=== PATIENT | female | born 1975 | race Caucasian/White ===

== ENCOUNTER → 2016-07-27 | Outpatient (CLI) | payer OTHER ==
[~2016-07-27] MED LIST: AMOXICILLIN500 M1 PO; CLARITIN10 M3 PO; ENBREL50 MG/1 M1 SUBQ; FLEXERIL10 MG PO; GABAPENTIN400 MG PO; HYDROCODON-ACE1 EAC7 PO; MOBIC15 MG PO; SYNTHROID75 MCG PO; TOPROL XL50 MG PO; VITAMIN D350000 UNIT PO; WELLBUTRIN XL150 M2 PO; ZESTORETIC 20-1 EAC1 PO
--- NOTE | ~2016-07-27 | EKG ---
PATIENT: REAL REESE UNIT #: [id number] Ventricular Rate: 84 BPM Atrial Rate: 84 BPM P-R Interval: 144 ms QRS Duration: 84 ms Q-T Interval: 370 ms QTC Calculation(Bezet): 437 ms P [place]: 3 degrees Calculated R [place]: -3 degrees Diagnosis Line: Normal sinus rhythm Diagnosis Line: Minimal voltage criteria for LVH, may be normal Diagnosis Line: variant Diagnosis Line: Otherwise normal ECG Diagnosis Line: No previous ECGs available Diagnosis Line: Confirmed by DANIELA MARIE MD ([id number]) on 07/28/2016 Diagnosis Line: 10:04:07 AM INTERPRETING MD: FRANK BANEGAS
[2016-07-27 15:20] LABS: BUN/CREATININE RATIO 12.5; CALCIUM SERUM 9.5 mg/dL (8.4-10.2); CREATININE SERUM 0.8 mg/dL (0.6-1.4); GLOM FILT RATE Estimated 92.3 mL/min (>60)
== END | disposition home or self-care (01) ==
LOC: CAMB 12:52
PROVIDERS: Orthopaedic Surgery
DX: Z01.818 Encounter for other preprocedural examination (principal); M23.42 Loose body in knee, left knee; I10 Essential (primary) hypertension; Z86.2 Personal history of diseases of the blood and blood-forming organs and certain disorders involving the immune mechanism
CPT/HCPCS: 36415; 80048; 93005

== ENCOUNTER → 2016-07-30 | Day surgery (SDC) | payer OTHER ==
--- NOTE | ~2016-07-30 | OR ---
Unit #: [id number] #: [id number] Patient: REAL REESE [id number] [address] [place], [place] [address] [id number] O MR#: [id number] NAME: REAL REESE ROOM: Date of Procedure: 07/30/2016 Admission Date: 07/30/2016 Surgeon: Timi James M.D. : 1975 Attending Physician: Timi Jamse M.D. Primary Care Physician: Trace Ellington Jr., M.D. PROCEDURE OPERATIVE NOTE PREOPERATIVE DIAGNOSIS Left knee loose body. POSTOPERATIVE DIAGNOSES 1. Multiple loose bodies; the largest of which was 2 cm. 2. 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 PROCEDURES PERFORMED 1. Multiple loose bodies removal; the largest of which was 2 cm. 2. Chondroplasty, patellofemoral joint. 3. Chondroplasty, medial tibiofemoral joint. 4. Chondroplasty, lateral tibiofemoral joint. ANESTHESIA General. DESCRIPTION OF PROCEDURE After obtaining informed consent, she was taken to the operating room and placed in a supine position. After adequate induction of general anesthesia, she was prepped and draped in a sterile fashion. Standard anteromedial and anterolateral portals were made. The arthroscope was introduced into the knee. The suprapatellar pouch had a spur, which was removed using a sheila. This was on the lateral side. There was also a 1.5-cm loose body, which was removed through a superolateral portal with a grasper. The base was debrided using a sheila. The patellofemoral joint showed mild grade 3 changes on the patella; more significant grade 3 changes on the trochlear groove. These were debrided using a shaver to smooth the cartilage. Medial and lateral gutters were free of loose body. The medial joint was examined. There were 2 large loose bodies anteriorly; the largest was 2 cm. A little larger portal was made medially to remove these with a grasper. The medial joint was examined. The meniscus was intact, but there was significant grade 3 wear over most of the medial femoral condyle and medial tibial plateau. The notch was examined. The ACL was intact. The lateral joint was examined. There were grade 3 changes over most of the weightbearing surface of the femoral condyle and tibial plateau. The meniscus was intact. A chondroplasty was performed. The portals were closed with 4-0 Vicryl sutures. She tolerated the procedure well and was sent to recovery room, stable. Dictated by... Timi James M.D. Unit #: [id number] #: [id number] Patient: REAL REESE MAX/jena TD: 07/31/2016 00:40 JOB #: [id number] PROCEDURE OPERATIVE NOTE Page 1 of 1 X Ji James MD X PROCEDURE OPERATIVE NOTE
== END | disposition home or self-care (01) ==
LOC: CSUR 06:01
DX: M23.42 Loose body in knee, left knee (principal); M94.8X6 Other specified disorders of cartilage, lower leg; M76.9 Unspecified enthesopathy, lower limb, excluding foot; F17.210 Nicotine dependence, cigarettes, uncomplicated; M17.10 Unilateral primary osteoarthritis, unspecified knee; I10 Essential (primary) hypertension; F32.9 Major depressive disorder, single episode, unspecified; F41.9 Anxiety disorder, unspecified; Z86.718 Personal history of other venous thrombosis and embolism; Z88.1 Allergy status to other antibiotic agents; Z88.2 Allergy status to sulfonamides; Z91.048 Other nonmedicinal substance allergy status; Z79.1 Long term (current) use of non-steroidal anti-inflammatories (NSAID); Z79.2 Long term (current) use of antibiotics; Z79.899 Other long term (current) drug therapy; Z98.890 Other specified postprocedural states
CPT/HCPCS: 84703; J2250; J2405; J3010